=== PATIENT | female | born 1955 | race Two or more races ===

== ENCOUNTER 2022-06-15 07:00 | Outpatient (CLI) | payer MEDICARE, MEDICAID | END 2022-06-15 23:59 | disposition home or self-care (01) | LOC: RT 07:00 | PROVIDERS: ATTEND Internal Medicine Cardiovascular Disease | DX: J44.9 Chronic obstructive pulmonary disease, unspecified (principal); J45.991 Cough variant asthma; U09.9 Post COVID-19 condition, unspecified | CPT/HCPCS: 94010; 94727; 94729 ==